=== PATIENT | male | born 1955 | race African-American/Black ===

== ENCOUNTER 2017-12-26 10:29 | Observation (INO) | payer OTHER ==
[~2017-12-26] VITALS: Ht 162.6 cm; Wt 89.0 kg
[~2017-12-26 10:29] MED LIST: ASPI325T PO; BACLPOW30 PO; FURO20TA PO; HYDR-3535 PO; KLOR20TA6 PO; NEUR600T PO; STOO100C PO; roho cushion
[2017-12-26 10:46] VITALS: BP 180/81; PULSE 85; RESP 18; TEMP 98.1; O2SAT 96
[2017-12-26] MEDS ORDERED: HYDR-3583 PO (11:02)
[2017-12-26] MEDS ORDERED: POTA20TA5 PO (11:02)
[2017-12-26] MEDS ORDERED: GABA800T PO (11:02)
[2017-12-26] MEDS ORDERED: COLA100C5 PO (11:02)
[2017-12-26] MEDS ORDERED: BACL10TA PO (11:02)
[2017-12-26] MEDS ORDERED: ASPI-183 PO (11:02)
[2017-12-26] MEDS ORDERED: FURO1TAB62 PO (11:02)
[2017-12-26] MEDS ORDERED: AMIO0.1T PO (11:02)
[2017-12-26] MEDS ORDERED: AMLO2.5T PO (11:02)
--- NOTE | 2017-12-26 11:11 | PD ---
HPI Chief Complaint: Abdominal Pain Time Seen by Provider: 11:05 Travel History International Travel<30 days: No Contact w/Intl Traveler<30days: No Traveled to known affect area: No History of Present Illness HPI 62-year-old male with history of quadriplegia since 2008, colostomy placement, hypertension, asthma, presents to emergency department for evaluation of acute hematuria 2 days. Patient states he has had some lower abdominal pain and cramping. No change in stool output in his colostomy bag. Subjective fever at home. Patient has been followed by wound care for a pressure ulcer on his buttock. Patient states he has not been taking his medication for the last 2-3 days because he is moving and it is locked up. Denies any nausea or vomiting. He does void with a condom catheter. He denies any chest pain or tightness. Patient also has noted increasing edema in his bilateral lower extremities over the last week. He has no other symptoms to report. PFSH Past Medical History Arthritis: No Asthma: Yes Blood Disorders: No Depression: Yes Heart Rhythm Problems: No Cardiovascular Problems: No High Cholesterol: No Chest Pain: No Congestive Heart Failure: No COPD: No Cerebrovascular Accident: No Diminished Hearing: No Endocrine: No Gastrointestinal Disorders: Yes GERD: No Glaucoma: Yes Genitourinary: Yes Hepatitis: Yes (PT REPORT HE DOES NOT HAVE HEPATITIS) Hiatal Hernia: No Hypertension: Yes Immune Disorder: No Implanted Vascular Access Dvce: No Kidney Stones: No Musculoskeletal: Yes Neurologic: Yes (QUADRIPLEGIC) Psychiatric: Yes Reproductive: No Respiratory: Yes (SOB) Integumentary: Yes (CELLULITIS TO RLE; COCCYX PRESSURE ULCER) Migraines: No Renal Failure: No Seizures: No Sleep Apnea: No Ulcer: No Past Surgical History Abdominal Surgery: Yes (COLOSTOMY) Cardiac Surgery: No Ear Surgery: No Endocrine Surgery: No Eye Surgery: No Genitourinary Surgery: No Gynecologic Surgery: No Neurologic Surgery: Yes (FX NECK /ASSAULT 2YEARS AGO? 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, MRSA, ESBL positive Reported Meds & Prescriptions Reported Meds & Active Scripts Active Reported Amlodipine (Amlodipine Besylate) 2.5 Mg Tab 2.5 Mg PO BID Amiodarone (Amiodarone HCl) 100 Mg Tab 100 Mg PO BID Hydrocodone-Acetaminophen 10-325 mg Tab 1 Tab PO Q6H PRN Potassium Chloride Microencaps 20 Meq Tab 20 Meq PO DAILY Gabapentin 800 Mg Tab 800 Mg PO TID Lasix (Furosemide) 20 Mg Tab 20 Mg PO BID Colace (Docusate Sodium) 100 Mg Capsule 100 Mg PO BID Baclofen 10 Mg Tab 10 Mg PO TID Aspirin 325 Mg Tab 325 Mg PO DAILY Review of Systems Except as stated in HPI: all other systems reviewed are Neg Physical Exam Narrative GENERAL: Well-nourished male patient, lying in bed in no acute distress. Appears nontoxic SKIN: Focused skin assessment warm/dry. Slightly flushed. 2 cm x 1 cm healing wound on the left buttock. HEAD: Atraumatic. Normocephalic. EYES: Pupils equal and round. No scleral icterus. No injection or drainage. ENT: No nasal bleeding or discharge. Mucous membranes pink and moist. NECK: Trachea midline. No JVD. CARDIOVASCULAR: Regular rate and rhythm. RESPIRATORY: No accessory muscle use. Diminished to auscultation. Breath sounds equal bilaterally. GASTROINTESTINAL: Abdomen soft, nondistended. Hepatic and splenic margins not palpable. Suprapubic tenderness to palpation. Left lower quadrant colostomy in place. MUSCULOSKELETAL: No obvious deformities. No clubbing. No cyanosis. 2+ bilateral lower extremity edema. Distal pulses are palpable. NEUROLOGICAL: Awake and alert. No obvious cranial nerve deficits. Contractures of the bilateral upper extremities. Lower extremity surface last visit. Normal speech. PSYCHIATRIC: Appropriate mood and affect; insight and judgment normal. Data Data Last Documented VS Vital Signs Date Time Temp Pulse Resp B/P (MAP) Pulse Ox O2 Delivery O2 Flow Rate FiO2 12/26/17 11:33 96 Room Air 12/26/17 10:46 98.1 85 18 180/81 (114) Orders Orders Sepsis Workup Initiated (12/26/17 ) Electrocardiogram (12/26/17 11:09) Complete Blood Count With Diff (12/26/17 11:09) Comprehensive Metabolic Panel (12/26/17 11:09) Prothrombin Time / Inr (Pt) (12/26/17 11:09) Act Partial Throm Time (Ptt) (12/26/17 11:09) Lactic Acid Sepsis Protocol (12/26/17 11:09) Urinalysis - C+S If Indicated (12/26/17 11:09) Influenzae A/B Antigen (12/26/17 11:09) Blood Culture (12/26/17 11:09) Chest, Single Ap (12/26/17 11:09) Blood Glucose (12/26/17 11:09) Ecg Monitoring (12/26/17 11:09) Iv Access Insert/Monitor (12/26/17 11:09) Oximetry (12/26/17 11:09) Oxygen Administration (12/26/17 11:09) B-Type Natriuretic Peptide (12/26/17 11:09) Us Leg Venous Doppler Bilat (12/26/17 ) Ct Abd/Pel W Iv Contrast(Rout) (12/26/17 ) Ketorolac Inj (Toradol Inj) (12/26/17 12:00) Iohexol 350 Inj (Omnipaque 350 Inj) (12/26/17 13:00) Morphine Inj (Morphine Inj) (12/26/17 13:00) Labs Laboratory Tests Test 12/26/17 11:05 12/26/17 11:20 White Blood Count 11.0 TH/MM3 Red Blood Count 6.06 MIL/MM3 Hemoglobin 17.6 GM/DL Hematocrit 52.2 % Mean Corpuscular Volume 86.1 FL Mean Corpuscular Hemoglobin 29.1 PG Mean Corpuscular Hemoglobin Concent 33.8 % Red Cell Distribution Width 14.5 % Platelet Count 269 TH/MM3 Mean Platelet Volume 8.9 FL Neutrophils (%) (Auto) 77.2 % Lymphocytes (%) (Auto) 12.7 % Monocytes (%) (Auto) 8.1 % Eosinophils (%) (Auto) 1.3 % Basophils (%) (Auto) 0.7 % Neutrophils # (Auto) 8.5 TH/MM3 Lymphocytes # (Auto) 1.4 TH/MM3 Monocytes # (Auto) 0.9 TH/MM3 Eosinophils # (Auto) 0.1 TH/MM3 Basophils # (Auto) 0.1 TH/MM3 CBC Comment DIFF FINAL Differential Comment Prothrombin Time 11.3 SEC Prothromb Time International Ratio 1.1 RATIO Activated Partial Thromboplast Time 26.4 SEC Blood Urea Nitrogen 7 MG/DL Creatinine 1.14 MG/DL Random Glucose 89 MG/DL Total Protein 8.9 GM/DL Albumin 3.5 GM/DL Calcium Level 8.8 MG/DL Alkaline Phosphatase 83 U/L Aspartate Amino Transf (AST/SGOT) 33 U/L Alanine Aminotransferase (ALT/SGPT) 30 U/L Total Bilirubin 0.6 MG/DL Sodium Level 137 MEQ/L Potassium Level 3.5 MEQ/L Chloride Level 99 MEQ/L Carbon Dioxide Level 33.3 MEQ/L Anion Gap 5 MEQ/L Estimat Glomerular Filtration Rate 79 ML/MIN Lactic Acid Level 1.1 mmol/L B-Type Natriuretic Peptide 10 PG/ML Urine Color YELLOW Urine Turbidity CLEAR Urine pH 6.0 Urine Specific [place] 1.010 Urine Protein NEG mg/dL Urine Glucose (UA) NEG mg/dL Urine Ketones 10 mg/dL Urine Occult Blood MOD Urine Nitrite NEG Urine Bilirubin NEG Urine Urobilinogen 2.0 MG/DL Urine Leukocyte Esterase NEG Urine RBC 4 /hpf Urine WBC 1 /hpf Urine Squamous Epithelial Cells <1 /hpf Urine Mucus FEW /lpf Microscopic Urinalysis Comment CATH-CULT NOT IND MDM Medical Decision Making Medical Screen Exam Complete: Yes Emergency Medical Condition: Yes Medical Record Reviewed: Yes Differential Diagnosis UTI versus hemorrhagic cystitis versus urethral trauma versus sepsis versus obstruction versus renal calculi Narrative Course 62-year-old male presents to emergency department for evaluation. Patient appears without distress. His vital signs are stable. Patient is quadriplegic and with bilateral upper extremities contractures in lower extremity flaccidity. There is edema of the bilateral lower extremity the patient states this is new for him. He appears nontoxic. He is treated for pain. Laboratory Tests Test 12/26/17 11:05 12/26/17 11:20 White Blood Count 11.0 TH/MM3 Red Blood Count 6.06 MIL/MM3 Hemoglobin 17.6 GM/DL Hematocrit 52.2 % Mean Corpuscular Volume 86.1 FL Mean Corpuscular Hemoglobin 29.1 PG Mean Corpuscular Hemoglobin Concent 33.8 % Red Cell Distribution Width 14.5 % Platelet Count 269 TH/MM3 Mean Platelet Volume 8.9 FL Neutrophils (%) (Auto) 77.2 % Lymphocytes (%) (Auto) 12.7 % Monocytes (%) (Auto) 8.1 % Eosinophils (%) (Auto) 1.3 % Basophils (%) (Auto) 0.7 % Neutrophils # (Auto) 8.5 TH/MM3 Lymphocytes # (Auto) 1.4 TH/MM3 Monocytes # (Auto) 0.9 TH/MM3 Eosinophils # (Auto) 0.1 TH/MM3 Basophils # (Auto) 0.1 TH/MM3 CBC Comment DIFF FINAL Differential Comment Prothrombin Time 11.3 SEC Prothromb Time International Ratio 1.1 RATIO Activated Partial Thromboplast Time 26.4 SEC Blood Urea Nitrogen 7 MG/DL Creatinine 1.14 MG/DL Random Glucose 89 MG/DL Total Protein 8.9 GM/DL Albumin 3.5 GM/DL Calcium Level 8.8 MG/DL Alkaline Phosphatase 83 U/L Aspartate Amino Transf (AST/SGOT) 33 U/L Alanine Aminotransferase (ALT/SGPT) 30 U/L Total Bilirubin 0.6 MG/DL Sodium Level 137 MEQ/L Potassium Level 3.5 MEQ/L Chloride Level 99 MEQ/L Carbon Dioxide Level 33.3 MEQ/L Anion Gap 5 MEQ/L Estimat Glomerular Filtration Rate 79 ML/MIN Lactic Acid Level 1.1 mmol/L B-Type Natriuretic Peptide 10 PG/ML Urine Color YELLOW Urine Turbidity CLEAR Urine pH 6.0 Urine Specific [place] 1.010 Urine Protein NEG mg/dL Urine Glucose (UA) NEG mg/dL Urine Ketones 10 mg/dL Urine Occult Blood MOD Urine Nitrite NEG Urine Bilirubin NEG Urine Urobilinogen 2.0 MG/DL Urine Leukocyte Esterase NEG Urine RBC 4 /hpf Urine WBC 1 /hpf Urine Squamous Epithelial Cells <1 /hpf Urine Mucus FEW /lpf Microscopic Urinalysis Comment CATH-CULT NOT IND Chest x-rays without acute critical may disease. CT Abdomen and pelvis CONCLUSION: 1. Stable CT scan of the abdomen and pelvis compared to 2012. 2. Mild symmetric thickening of urinary bladder wall. This is not significantly changed compared to the prior exam. 3. Stable left lower quadrant ileostomy 4. Stable position of the IVC filter Bilateral lower extremity ultrasound is negative for DVT. I discussed the patient my attending physician who is also assess the patient. Patient is given additional dose of pain control. He'll be discharged home to follow-up with urology and his primary care provider. He is encouraged to take his medication as prescribed. He agrees to return immediately with any acute worsening symptoms. Diagnosis Primary Impression: Hematuria Qualified Codes: R31.9 - Hematuria, unspecified Additional Impression: Lower abdominal pain Referrals: Primary Care Physician Urologist Patient Instructions: General Instructions, Hematuria (ED) Additional Instructions: Maintain adequate oral hydration Continue your medication as already prescribed Follow-up with a urologist Follow-up with a primary care provider Return immediately with any acute worsening of symptoms Med/Other Pt SpecificInfo: No Change to Meds Disposition: 01 DISCHARGE HOME Condition: Stable Thuy Luque Dec 26, 2017 11:11
[2017-12-26 11:33] VITALS: O2SAT 96
[2017-12-26 11:48] LABS: AUTOMATED NEUTROPHIL # 8.5 TH/MM3 (1.8-7.7); BASOPHIL # 0.1 TH/MM3 (0-0.2); BASOPHIL % 0.7 % (0.0-2.0); EOSINOPHIL # 0.1 TH/MM3 (0-0.4); EOSINOPHIL % 1.3 % (0.0-4.0); HEMATOCRIT 52.2 % (39.0-51.0); HEMOGLOBIN 17.6 GM/DL (13.0-17.0); LYMPH % 12.7 % (9.0-44.0); LYMPHOCYTE # 1.4 TH/MM3 (1.0-4.8); MEAN CELL VOLUME 86.1 FL (80.0-100.0); MEAN CORPUSCULAR HEMOGLOBIN 29.1 PG (27.0-34.0); MEAN CORPUSCULAR HGB CONC 33.8 % (32.0-36.0); MEAN PLATELET VOLUME 8.9 FL (7.0-11.0); MONO % 8.1 % (0.0-8.0); MONOCYTE # 0.9 TH/MM3 (0-0.9); NEUT % 77.2 % (16.0-70.0); PLATELET COUNT 269 TH/MM3 (150-450); RED BLOOD COUNT 6.06 MIL/MM3 (4.50-5.90); RED CELL DISTRIBUTION WIDTH 14.5 % (11.6-17.2)
[2017-12-26 11:59] LABS: INTERNATIONAL NORMALIZED RATIO 1.1 RATIO; PROTHROMBIN TIME - PATIENT 11.3 SEC (9.8-11.6)
[2017-12-26] MEDS ORDERED: KETOROLAC TROMETHAMINE 30 MG/ML (IVP) VIAL IV PUSH ONE (12:00)
--- NOTE | 2017-12-26 12:02 | RADRPT ---
EXAM DATE/TIME: 12/26/2017 11:22 [facility] COMPARISON: US LEG BILATERAL VENOUS DOPPLER, March 27, 2012, 10:05. INDICATIONS : Bilateral leg swelling. MEDICAL HISTORY : Hypertension. Glaucoma. Quadriplegic. Asthma. Depression. Substance use. Blood transfusion. MDRO. SURGICAL HISTORY : Colostomy. Neck fracture repair. ENCOUNTER: Subsequent ACUITY: 1 day PAIN SCORE: 0/10 LOCATION: Bilateral legs. TECHNIQUE: Venous ultrasound of the left and right leg was performed from the inguinal ligament to the proximal calf. Real-time, color Doppler and spectral tracing, compression and augmentation techniques were us ed. FINDINGS: RIGHT LEG: There is normal compressibility of the deep venous system from the inguinal region to the proximal ca lf. No echogenic clot is seen in the lumen of the common femoral, femoral, popliteal, and posterior tibial veins. There is a normal response of the venous system to proximal and distal augmentation an d respiration. Inguinal lymph nodes are seen. LEFT LEG: There is normal compressibility of the deep venous system from the inguinal region to the proximal ca lf. No echogenic clot is seen in the lumen of the common femoral, femoral, popliteal, and posterior tibial veins. There is a normal response of the venous system to proximal and distal augmentation an d respiration. Inguinal lymph nodes are seen. CONCLUSION: No DVT. Scott Obregon MD on December 26, 2017 at 12:00 Board Certified Radiologist. This report was verified electronically.
[2017-12-26 12:10] LABS: ALKALINE PHOSPHATASE 83 U/L (45-117); TOTAL BILIRUBIN ADULT 0.6 MG/DL (0.2-1.0); TOTAL PROTEIN 8.9 GM/DL (6.4-8.2)
[2017-12-26 12:11] LABS: ALBUMIN 3.5 GM/DL (3.4-5.0); ALT (GPT) 30 U/L (12-78); AST (GOT) 33 U/L (15-37); BICARBONATE 33.3 MEQ/L (21.0-32.0); BLOOD UREA NITROGEN 7 MG/DL (7-18); CALCIUM 8.8 MG/DL (8.5-10.1); CHLORIDE 99 MEQ/L (98-107); CREATININE 1.14 MG/DL (0.60-1.30); GLOMERULAR FILTRATION RATE 79 ML/MIN (>89); GLUCOSE,RANDOM 89 MG/DL (74-106); SODIUM (NA) 137 MEQ/L (136-145)
--- NOTE | 2017-12-26 12:41 | RADRPT ---
EXAM DATE/TIME: 12/26/2017 12:03 [facility] COMPARISON: No previous studies available for comparison. INDICATIONS : Chest and abdominal pain, shortness of breath. MEDICAL HISTORY : Hypertension. Asthma. SURGICAL HISTORY : None. ENCOUNTER: Initial ACUITY: 1 day PAIN SCORE: 8/10 LOCATION: Bilateral chest FINDINGS: A single view of the chest demonstrates the lungs to be symmetrically aerated without evidence of mas s, infiltrate or effusion. The cardiomediastinal contours are unremarkable. Osseous structures are intact. CONCLUSION: No acute disease. Darius Grimes MD on December 26, 2017 at 12:39 Board Certified Radiologist. This report was verified electronically.
[2017-12-26 12:44] LABS: BILIRUBIN, URINE NEG (NEG); BLOOD, URINE MOD (NEG); GLUCOSE,URINE NEG (NEG); KETONE, URINE 10 mg/dL (NEG); MUCUS URINE FEW /lpf (OCC); NITRITE,URINE NEG (NEG); SQUAMOUS EPITHELIAL CELL URINE <1 /hpf (0-5); URINE COLOR YELLOW (YELLW/STRAW); URINE LEUKOCYTE ESTERASE NEG (NEG)
[2017-12-26] MEDS ORDERED: MORPHINE SULFATE 2 MG/ML INJ IV PUSH ONE (13:00)
[2017-12-26] MEDS ORDERED: IOHEXOL 350 MG/ML 10 ML VIAL (for RAD DIAG) IVCONTRAST ONE (13:00)
--- NOTE | 2017-12-26 13:05 | PD ---
Physical Exam Narrative I, Dr. Venegas, have reviewed the advance practice practitioner's documentation and am in agreement, met with the patient face to face, made the diagnosis, and the medical decision making was done by me. *My assessment and Findings: Colitis vs. UTI vs. nephrolithiasis 62yo M who is a quadriplegic here with lower abdominal pain and hematuria for 2 days. Denies any vomiting. Said he had fever at home but afebrile here. Labs reviewed, no leukocytosis. H/H elevated, likely secondary to dehydration. Lactic acid normal. BNP 10. CMP unremarkable. UA showed moderate 10. WBC 1. CXR negative. US bilateral lower ext showed no DVT. CT a/p showed stable CT of abdomen and pelvis. Mild symmetric thickening of urinary bladder wall. Not significantly changed. Pt's pain improved after medication. He is well appearing. Tolerating PO. Return precautions given. Data Data Last Documented VS Vital Signs Date Time Temp Pulse Resp B/P (MAP) Pulse Ox O2 Delivery O2 Flow Rate FiO2 12/26/17 11:33 96 Room Air 12/26/17 10:46 98.1 85 18 180/81 (114) Orders Orders Sepsis Workup Initiated (12/26/17 ) Electrocardiogram (12/26/17 11:09) Complete Blood Count With Diff (12/26/17 11:09) Comprehensive Metabolic Panel (12/26/17 11:09) Prothrombin Time / Inr (Pt) (12/26/17 11:09) Act Partial Throm Time (Ptt) (12/26/17 11:09) Lactic Acid Sepsis Protocol (12/26/17 11:09) Urinalysis - C+S If Indicated (12/26/17 11:09) Influenzae A/B Antigen (12/26/17 11:09) Blood Culture (12/26/17 11:09) Chest, Single Ap (12/26/17 11:09) Blood Glucose (12/26/17 11:09) Ecg Monitoring (12/26/17 11:09) Iv Access Insert/Monitor (12/26/17 11:09) Oximetry (12/26/17 11:09) Oxygen Administration (12/26/17 11:09) B-Type Natriuretic Peptide (12/26/17 11:09) Us Leg Venous Doppler Bilat (12/26/17 ) Ct Abd/Pel W Iv Contrast(Rout) (12/26/17 ) Ketorolac Inj (Toradol Inj) (12/26/17 12:00) Iohexol 350 Inj (Omnipaque 350 Inj) (12/26/17 13:00) Morphine Inj (Morphine Inj) (12/26/17 13:00) Ed Discharge Order (12/26/17 13:28) Labs Laboratory Tests Test 12/26/17 11:05 12/26/17 11:20 White Blood Count 11.0 TH/MM3 Red Blood Count 6.06 MIL/MM3 Hemoglobin 17.6 GM/DL Hematocrit 52.2 % Mean Corpuscular Volume 86.1 FL Mean Corpuscular Hemoglobin 29.1 PG Mean Corpuscular Hemoglobin Concent 33.8 % Red Cell Distribution Width 14.5 % Platelet Count 269 TH/MM3 Mean Platelet Volume 8.9 FL Neutrophils (%) (Auto) 77.2 % Lymphocytes (%) (Auto) 12.7 % Monocytes (%) (Auto) 8.1 % Eosinophils (%) (Auto) 1.3 % Basophils (%) (Auto) 0.7 % Neutrophils # (Auto) 8.5 TH/MM3 Lymphocytes # (Auto) 1.4 TH/MM3 Monocytes # (Auto) 0.9 TH/MM3 Eosinophils # (Auto) 0.1 TH/MM3 Basophils # (Auto) 0.1 TH/MM3 CBC Comment DIFF FINAL Differential Comment Prothrombin Time 11.3 SEC Prothromb Time International Ratio 1.1 RATIO Activated Partial Thromboplast Time 26.4 SEC Blood Urea Nitrogen 7 MG/DL Creatinine 1.14 MG/DL Random Glucose 89 MG/DL Total Protein 8.9 GM/DL Albumin 3.5 GM/DL Calcium Level 8.8 MG/DL Alkaline Phosphatase 83 U/L Aspartate Amino Transf (AST/SGOT) 33 U/L Alanine Aminotransferase (ALT/SGPT) 30 U/L Total Bilirubin 0.6 MG/DL Sodium Level 137 MEQ/L Potassium Level 3.5 MEQ/L Chloride Level 99 MEQ/L Carbon Dioxide Level 33.3 MEQ/L Anion Gap 5 MEQ/L Estimat Glomerular Filtration Rate 79 ML/MIN Lactic Acid Level 1.1 mmol/L B-Type Natriuretic Peptide 10 PG/ML Urine Color YELLOW Urine Turbidity CLEAR Urine pH 6.0 Urine Specific [place] 1.010 Urine Protein NEG mg/dL Urine Glucose (UA) NEG mg/dL Urine Ketones 10 mg/dL Urine Occult Blood MOD Urine Nitrite NEG Urine Bilirubin NEG Urine Urobilinogen 2.0 MG/DL Urine Leukocyte Esterase NEG Urine RBC 4 /hpf Urine WBC 1 /hpf Urine Squamous Epithelial Cells <1 /hpf Urine Mucus FEW /lpf Microscopic Urinalysis Comment CATH-CULT NOT IND MDM Supervised Visit with BEBE: Yes Interpretation(s) EKG: NSR 72bpm. RBBB. TWI V3, III Diagnosis Primary Impression: Lower abdominal pain [place] Venegas DO Dec 26, 2017 13:05
--- NOTE | 2017-12-26 13:06 | RADRPT ---
EXAM DATE/TIME: 12/26/2017 12:42 [facility] COMPARISON: CT ABDOMEN & PELVIS W CONTRAST, January 20, 2012, 10:47. INDICATIONS : Urine is red, abdominal pain, colostomy. IV CONTRAST: 85 cc Omnipaque 350 (iohexol) IV ORAL CONTRAST: No oral contrast ingested. RADIATION DOSE: 9.68 CTDIvol (mGy) MEDICAL HISTORY : Hypertension. Hepatitis. Parapalegic SURGICAL HISTORY : Colostomy. ostomy, urine catheter, ENCOUNTER: Initial ACUITY: 1 day PAIN SCALE: 6/10 LOCATION: diffuse abdomen TECHNIQUE: Volumetric scanning of the abdomen and pelvis was performed. Using automated exposure control and ad justment of the mA and/or kV according to patient size, radiation dose was kept as low as reasonably achievable to obtain optimal diagnostic quality images. DICOM format image data is available electro nically for review and comparison. FINDINGS: LOWER LUNGS: The visualized lower lungs are clear. LIVER: Homogeneous density without lesion. There is no dilation of the biliary tree. No calcified gallston es. SPLEEN: Normal size without lesion. PANCREAS: Within normal limits. KIDNEYS: Normal in size and shape. There is no mass, stone or hydronephrosis. ADRENAL GLANDS: Within normal limits. VASCULAR: There is no aortic aneurysm. Stable IVC filter in place. BOWEL/MESENTERY: The stomach, small bowel, and colon demonstrate no acute abnormality. There is a stable ileostomy burt ng the left lower quadrant. There is stool throughout the colon. No evidence of obstruction. No infla mmatory changes. No significant change compared to the prior exam. The appendix is unremarkable. The re is no free intraperitoneal air or fluid. ABDOMINAL WALL: Within normal limits. RETROPERITONEUM: There is no lymphadenopathy. BLADDER: Mild symmetric thickening of urinary bladder wall. This is stable compared to the prior exam. No blad zachary stones. REPRODUCTIVE: Within normal limits. INGUINAL: There is no lymphadenopathy or hernia. MUSCULOSKELETAL: Within normal limits for patient age. Stable primary degenerative changes. No new or significant changes compared to 2011 CONCLUSION: 1. Stable CT scan of the abdomen and pelvis compared to 2011. 2. Mild symmetric thickening of urinary bladder wall. This is not significantly changed compared to t he prior exam. 3. Stable left lower quadrant ileostomy 4. Stable position of the IVC filter Darius Grimes MD on December 26, 2017 at 13:01 Board Certified Radiologist. This report was verified electronically.
[2017-12-26 18:00] VITALS: BP 177/91; PULSE 70; RESP 21; O2SAT 96
[2017-12-27] MEDS ORDERED: ACETAMINOPHEN/HYDROcodone 325 MG/5 MG TAB PO ONE (03:30)
[2017-12-27] MEDS ORDERED: BACLOFEN 10 MG TAB PO ONE (03:30)
[2017-12-27 04:32] VITALS: BP 130/78; PULSE 69; RESP 16; O2SAT 98
[2017-12-27 09:51] VITALS: BP 168/96; PULSE 73; RESP 16; O2SAT 98
[2017-12-27] MEDS ORDERED: GABAPENTIN 100 MG CAP PO ONE (10:00)
--- NOTE | 2017-12-27 12:10 | PD ---
Physical Exam Date Seen by Provider: Dec 27, 2017 Time Seen by Provider: 12:08 Narrative Patient was seen by the previous ER physician and discharged a while ago. However the discharge was getting withheld due to the fact that patient's motorized wheelchair is at a repair shop. Patient cannot ambulate without the wheelchair since he's paraplegic. He has no means of help. ED case management was working on this issue finally let us know that the wheelchair would be ready by tomorrow in which case patient needs to be admitted if there is no other way of getting him home or help. I discussed the case with the residents who have accepted the patient. Patient will be admitted for 24 hours. Data Data Last Documented VS Vital Signs Date Time Temp Pulse Resp B/P (MAP) Pulse Ox O2 Delivery O2 Flow Rate FiO2 12/27/17 09:51 73 16 168/96 (120) 98 Room Air 12/26/17 10:46 98.1 Orders Orders Sepsis Workup Initiated (12/26/17 ) Electrocardiogram (12/26/17 11:09) Complete Blood Count With Diff (12/26/17 11:09) Comprehensive Metabolic Panel (12/26/17 11:09) Prothrombin Time / Inr (Pt) (12/26/17 11:09) Act Partial Throm Time (Ptt) (12/26/17 11:09) Lactic Acid Sepsis Protocol (12/26/17 11:09) Urinalysis - C+S If Indicated (12/26/17 11:09) Influenzae A/B Antigen (12/26/17 11:09) Blood Culture (12/26/17 11:09) Chest, Single Ap (12/26/17 11:09) Blood Glucose (12/26/17 11:09) Ecg Monitoring (12/26/17 11:09) Iv Access Insert/Monitor (12/26/17 11:09) Oximetry (12/26/17 11:09) Oxygen Administration (12/26/17 11:09) B-Type Natriuretic Peptide (12/26/17 11:09) Us Leg Venous Doppler Bilat (12/26/17 ) Ct Abd/Pel W Iv Contrast(Rout) (12/26/17 ) Ketorolac Inj (Toradol Inj) (12/26/17 12:00) Iohexol 350 Inj (Omnipaque 350 Inj) (12/26/17 13:00) Morphine Inj (Morphine Inj) (12/26/17 13:00) Ed Discharge Order (12/26/17 13:28) Diet Heart Healthy (12/26/17 Dinner) Baclofen (Lioresal) (12/27/17 03:30) Acetamin-Hydrocod 325-5 Mg ([place] 5-325 (12/27/17 03:30) Gabapentin (Neurontin) (12/27/17 10:00) Admit Order (Ed Use Only) (12/27/17 12:08) Labs Laboratory Tests Test 12/26/17 11:05 12/26/17 11:20 White Blood Count 11.0 TH/MM3 Red Blood Count 6.06 MIL/MM3 Hemoglobin 17.6 GM/DL Hematocrit 52.2 % Mean Corpuscular Volume 86.1 FL Mean Corpuscular Hemoglobin 29.1 PG Mean Corpuscular Hemoglobin Concent 33.8 % Red Cell Distribution Width 14.5 % Platelet Count 269 TH/MM3 Mean Platelet Volume 8.9 FL Neutrophils (%) (Auto) 77.2 % Lymphocytes (%) (Auto) 12.7 % Monocytes (%) (Auto) 8.1 % Eosinophils (%) (Auto) 1.3 % Basophils (%) (Auto) 0.7 % Neutrophils # (Auto) 8.5 TH/MM3 Lymphocytes # (Auto) 1.4 TH/MM3 Monocytes # (Auto) 0.9 TH/MM3 Eosinophils # (Auto) 0.1 TH/MM3 Basophils # (Auto) 0.1 TH/MM3 CBC Comment DIFF FINAL Differential Comment Prothrombin Time 11.3 SEC Prothromb Time International Ratio 1.1 RATIO Activated Partial Thromboplast Time 26.4 SEC Blood Urea Nitrogen 7 MG/DL Creatinine 1.14 MG/DL Random Glucose 89 MG/DL Total Protein 8.9 GM/DL Albumin 3.5 GM/DL Calcium Level 8.8 MG/DL Alkaline Phosphatase 83 U/L Aspartate Amino Transf (AST/SGOT) 33 U/L Alanine Aminotransferase (ALT/SGPT) 30 U/L Total Bilirubin 0.6 MG/DL Sodium Level 137 MEQ/L Potassium Level 3.5 MEQ/L Chloride Level 99 MEQ/L Carbon Dioxide Level 33.3 MEQ/L Anion Gap 5 MEQ/L Estimat Glomerular Filtration Rate 79 ML/MIN Lactic Acid Level 1.1 mmol/L B-Type Natriuretic Peptide 10 PG/ML Urine Color YELLOW Urine Turbidity CLEAR Urine pH 6.0 Urine Specific [employer] 1.010 Urine Protein NEG mg/dL Urine Glucose (UA) NEG mg/dL Urine Ketones 10 mg/dL Urine Occult Blood MOD Urine Nitrite NEG Urine Bilirubin NEG Urine Urobilinogen 2.0 MG/DL Urine Leukocyte Esterase NEG Urine RBC 4 /hpf Urine WBC 1 /hpf Urine Squamous Epithelial Cells <1 /hpf Urine Mucus FEW /lpf Microscopic Urinalysis Comment CATH-CULT NOT IND MDM Supervised Visit with BEBE: No Diagnosis Primary Impression: Lower abdominal pain Additional Impressions: Hematuria Qualified Codes: R31.9 - Hematuria, unspecified Paraplegia Wheelchair bound Admitting Information Admitting Physician Requests: Observation Referrals: Primary Care Physician Urologist Patient Instructions: General Instructions, Hematuria (ED) Additional Instruction: Maintain adequate oral hydration Continue your medication as already prescribed Follow-up with a urologist Follow-up with a primary care provider Return immediately with any acute worsening of symptoms Scripts Amlodipine (Amlodipine) 2.5 Mg Tab 2.5 MG PO BID for Blood Pressure Management, #30 TAB 0 Refills Prov: Nakul Collins MD, R3 12/29/17 Docusate Sodium (Colace) 100 Mg Capsule 100 MG PO BID for Prevent Constipation, #60 CAP 0 Refills Prov: Nakul Collins MD, R3 12/29/17 Baclofen (Baclofen) 10 Mg Tab 10 MG PO TID for Muscle Spasm, #30 TAB 0 Refills Prov: Nakul Collins MD, R3 12/29/17 Aspirin (Aspirin) 325 Mg Tab 325 MG PO DAILY, #30 TAB 0 Refills Prov: Nakul Collins MD, R3 12/29/17 Hydrocodone-Acetaminophen (Hydrocodone-Acetaminophen) 10-325 mg Tab 1 TAB PO Q6H Y for PAIN, #30 TAB 0 Refills Prov: Nakul Collins MD, R3 12/28/17 Disposition: 01 DISCHARGE HOME Condition: Stable Jada Nash MD Dec 27, 2017 12:10
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
--- NOTE | 2017-12-27 12:19 | EKG ---
Date Performed: 12/26/2017 Time Performed: 11:44:17 PTAGE: 62 years EKG: Sinus rhythm POSSIBLE LEFT ATRIAL ENLARGEMENT INDETERMINATE AXIS RIGHT BUNDLE BRANCH BLOCK ABNORMAL ECG PREVIOUS TRACING : 06/20/2013 11.04 Since the prior tracing, there has been no significant machuca DOCTOR: Pierre Armstrong Interpretating Date/Time 12/27/2017 12:18:15
[2017-12-27] MEDS ORDERED: BISACODYL 10 MG SUPP RECTAL PRN (12:45)
[2017-12-27] MEDS ORDERED: ONDANSETRON HCL 4 MG/2 ML VIAL IVP PRN (12:45)
[2017-12-27] MEDS ORDERED: SODIUM CHLORIDE 0.9% FLUSH 10 ML FLUSH IV FLUSH PRN (12:45)
[2017-12-27] MEDS ORDERED: LACTULOSE SYRUP 20 GM/30 ML CUP PO PRN (12:45)
[2017-12-27] MEDS ORDERED: NALOXONE HCL 0.4 MG/ML AMP IV PUSH PRN (12:45)
[2017-12-27] MEDS ORDERED: SENNOSIDES 8.6 MG TAB PO PRN (12:45)
[2017-12-27] MEDS ORDERED: ACETAMINOPHEN 325 MG TAB PO PRN (12:45)
[2017-12-27] MEDS ORDERED: MAGNESIUM HYDROXIDE SUSP 30 ML CUP PO PRN (12:45)
[2017-12-27] MEDS ORDERED: PILL SPLITTER OTHER PRN (13:15)
[2017-12-27] MEDS: ACETAMINOPHEN/HYDROcodone 325 MG/10 MG TAB PO PRN ×2 (14:08→18:42)
[2017-12-27 14:09] VITALS: BP 172/98; PULSE 70; RESP 16; TEMP 98.3; O2SAT 96
[2017-12-27] MEDS: HEPARIN SODIUM - SQ 10,000 UNITS/ML VIAL SQ SCH (14:09)
[2017-12-27] MEDS: GABAPENTIN 400 MG CAP PO SCH ×2 (14:09→18:41)
--- NOTE | 2017-12-27 14:34 | RADRPT ---
EXAM DATE/TIME: 12/27/2017 13:44 [place] COMPARISON: No previous studies available for comparison. INDICATIONS : Sacral pain. No recent injury known. MEDICAL HISTORY : None. SURGICAL HISTORY : None. ENCOUNTER: Initial ACUITY: 4 - 6 days PAIN SCORE: 9/10 LOCATION: Bilateral sacrum FINDINGS: Frontal and lateral views of the sacrum demonstrate no fracture. Sacral arches appear intact. Sacroil iac joints demonstrate no abnormality. Visualized pelvic bones demonstrate no acute finding. There is osteoarthritis at the hip joints bilaterally. No coccyx is visualized. CONCLUSION: 1. No acute sacral abnormality is identified. 2. Nonvisualization of the coccyx. The coccyx was also not visualized on the recent CT scan.. There i s a sacral decubitus wound on the prior imaging studies with possible changes to the posterior sacrum which could indicate osteomyelitis (acute versus chronic). 3. Bilateral hip joint osteoarthritis. Scott Alexis MD on December 27, 2017 at 14:30 Board Certified Radiologist. This report was verified electronically.
[2017-12-27] MEDS: BACLOFEN 10 MG TAB PO SCH ×2 (15:09→18:41)
[2017-12-27 15:58] VITALS: BP 131/65; PULSE 85; RESP 21; TEMP 98; O2SAT 92
--- NOTE | 2017-12-27 17:30 | PD.WCN.NOT ---
Wound Consult Description: Received consult from Doctor Nakul Collins MD R3 for sacral pressure injury Communicated with: MIKE Rudolph CDU H pod and Doctor Nakul Collins Recommendation: 1.Please cleanse improving stage 4 pressure injury to sacral area and stage 3 pressure injury to R ischial area with normal saline and pat dry 2. Apply Maxorb II (calcium alginate) loosely packed in to wound bed of sacral wound cover with bordered gauze. Change dressing every other day PRN if saturated or dislodged. 3. please apply oil emulsion gauze over in a single layer just over open wounds and cover with bordered gauze. Change dressing every other day or PRN if saturated or dislodged. 4. Please turn patient every 2 hours and PRN for comfort and offloading or pressure from kei prominences. Additional Information: Patient seen on H pod CDU for evaluation of sacral pressure ulcer around 1630. Patient was seen with Miri NICHOLS, , and Klaudia CDU H pod. Patient was turned with assistance of advertising writer, Miri NICHOLS, and Klaudia to R side to reveal improving stage 4 pressure injury to sacral area that measures 1cm x 1.4cm 1.1cm. Undermining noted between 12 and 8 o'clock deepest at 12 o'clock measuring 1.2cm. Wound bed presents with ~80% red non granulation tissue and ~20 % newly epithelialized tissue. Wound margins are noted with epibole that is circumferential and macerated between 5 and 8 o'clock. Periwound presents with scar tissue and denuded peeling skin. Skin prep was applied to periwound before packing wound loosely with Maxorb II (calcium alginate) dressing and covering with bordered gauze. Stage 3 pressure injury is also noted to R ischial area. Wound measures 5cm x 2cm x 0.2cm. Wound bed presents with 100% red non granulation tissue. Wound margins are uneven, but well defined. Cleansed wound with normal saline and patted dry. Applied oil emulsion gauze just over open wound and covered with bordered gauze. Patient educated on the importance of repositioning in bed every 2 hours and following up with outpatient wound care. Ramila Rogers [facility] Dec 27, 2017 17:29
[2017-12-27 20:41] VITALS: BP 123/68; PULSE 87; RESP 20; TEMP 98.6; O2SAT 93
[2017-12-27] MEDS ORDERED: ZOLPIDEM TARTRATE 5 MG TAB PO PRN (21:00)
[2017-12-27] MEDS: amLODIPine BESYLATE 5 MG TAB PO SCH (22:15)
[2017-12-27] MEDS: DOCUSATE SODIUM 50 MG/SENNA 8.6 MG TAB PO SCH (22:15)
[2017-12-27] MEDS: SODIUM CHLORIDE 0.9% FLUSH 10 ML FLUSH IV FLUSH SCH (22:16)
[2017-12-28] VITALS (7 sets, daily range): BP systolic 124–174; BP diastolic 68–94; PULSE 75–93; RESP 16–20; TEMP 98.1–99.4; O2SAT 94–100
[2017-12-28] MEDS: ACETAMINOPHEN/HYDROcodone 325 MG/10 MG TAB PO PRN ×3 (02:24→17:40)
[2017-12-28] MEDS: HEPARIN SODIUM - SQ 10,000 UNITS/ML VIAL SQ SCH ×2 (02:24→12:47)
[2017-12-28 06:59] LABS: AUTOMATED NEUTROPHIL # 6.5 TH/MM3 (1.8-7.7); BASOPHIL % 0.3 % (0.0-2.0); EOSINOPHIL # 0.3 TH/MM3 (0-0.4); EOSINOPHIL % 2.4 % (0.0-4.0); HEMATOCRIT 46.9 % (39.0-51.0); HEMOGLOBIN 15.5 GM/DL (13.0-17.0); LYMPH % 28.4 % (9.0-44.0); LYMPHOCYTE # 3.1 TH/MM3 (1.0-4.8); MEAN CELL VOLUME 86.6 FL (80.0-100.0); MEAN CORPUSCULAR HEMOGLOBIN 28.7 PG (27.0-34.0); MEAN CORPUSCULAR HGB CONC 33.1 % (32.0-36.0); MEAN PLATELET VOLUME 8.7 FL (7.0-11.0); MONO % 8.8 % (0.0-8.0); NEUT % 60.1 % (16.0-70.0); PLATELET COUNT 241 TH/MM3 (150-450); RED BLOOD COUNT 5.42 MIL/MM3 (4.50-5.90); RED CELL DISTRIBUTION WIDTH 14.4 % (11.6-17.2); WHITE BLOOD COUNT 10.9 TH/MM3 (4.0-11.0)
[2017-12-28 07:24] LABS: BICARBONATE 32.2 MEQ/L (21.0-32.0); CALCIUM 8.7 MG/DL (8.5-10.1); CREATININE 1.01 MG/DL (0.60-1.30)
[2017-12-28] MEDS ORDERED: POTASSIUM CHLORIDE 10 MEQ CONTROLLED RELEASE TAB PO ONE (08:45)
[2017-12-28] MEDS: SODIUM CHLORIDE 0.9% FLUSH 10 ML FLUSH IV FLUSH SCH ×2 (09:00→20:38)
[2017-12-28] MEDS ORDERED: HYDR-3583 PO (09:11)
[2017-12-28] MEDS: GABAPENTIN 400 MG CAP PO SCH ×3 (09:20→17:37)
[2017-12-28] MEDS: DOCUSATE SODIUM 50 MG/SENNA 8.6 MG TAB PO SCH ×2 (09:21→20:38)
[2017-12-28] MEDS: amLODIPine BESYLATE 5 MG TAB PO SCH ×2 (09:21→20:38)
[2017-12-28] MEDS: BACLOFEN 10 MG TAB PO SCH ×3 (09:21→17:37)
[2017-12-28] MEDS: ASPIRIN 325 MG TAB PO SCH (09:21)
[2017-12-28] MEDS ORDERED: INFLUENZA VIRUS VACCINE (QUADRIVALENT) 0.5 ML SYR IM ONE (10:00)
[2017-12-28] MEDS ORDERED: PNEUMOCOCCAL POLYVALENT INJ 25 MCG/0.5 ML SYR IM ONE (10:00)
--- NOTE | 2017-12-28 12:52 | HHI.DCPOC ---
Discharge Care Plan Diagnosis: (1) Sacral decubitus ulcer, stage IV (2) Hematuria (3) Wheelchair bound Goals to Promote Your Health * To prevent worsening of your condition and complications * To maintain your health at the optimal level Directions to Meet Your Goals Take your medications as prescribed Follow your dietary instruction Follow activity as directed Keep your appointments as scheduled Take your immunizations and boosters as scheduled If your symptoms worsen call your PCP, if no PCP go to Urgent Care Center or Emergency Room Smoking is Dangerous to Your Health. Avoid second hand smoke Call the 24-hour hour crisis hotline for domestic abuse at Nakul Collins MD, R3 Dec 28, 2017 12:52
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
[2017-12-29 00:08] VITALS: BP 131/72; PULSE 73; RESP 16; TEMP 98; O2SAT 96
[2017-12-29] MEDS: ACETAMINOPHEN/HYDROcodone 325 MG/10 MG TAB PO PRN ×2 (00:50→07:10)
[2017-12-29] MEDS: MORPHINE SULFATE 2 MG/ML INJ IV PUSH PRN ×2 (01:58→11:03)
[2017-12-29] MEDS: HEPARIN SODIUM - SQ 10,000 UNITS/ML VIAL SQ SCH (01:58)
[2017-12-29 04:53] VITALS: BP 125/71; PULSE 71; RESP 16; TEMP 98.5; O2SAT 92
[2017-12-29 07:25] VITALS: BP 163/84; PULSE 72; RESP 18; TEMP 98.1; O2SAT 98
[2017-12-29] MEDS ORDERED: COLA100C5 PO (08:24)
[2017-12-29] MEDS ORDERED: BACL10TA PO (08:24)
[2017-12-29] MEDS ORDERED: ASPI-183 PO (08:24)
[2017-12-29] MEDS ORDERED: AMLO2.5T PO (08:24)
[2017-12-29] MEDS: SODIUM CHLORIDE 0.9% FLUSH 10 ML FLUSH IV FLUSH SCH (08:54)
[2017-12-29] MEDS: GABAPENTIN 400 MG CAP PO SCH (08:55)
[2017-12-29] MEDS: BACLOFEN 10 MG TAB PO SCH (08:55)
[2017-12-29] MEDS: ASPIRIN 325 MG TAB PO SCH (08:55)
[2017-12-29] MEDS: DOCUSATE SODIUM 50 MG/SENNA 8.6 MG TAB PO SCH (08:55)
[2017-12-29] MEDS: amLODIPine BESYLATE 5 MG TAB PO SCH (08:55)
--- NOTE | 2017-12-29 09:19 | HHI.FPPN ---
Subjective Remarks Mr. Parrish reported that his pain was better last night and controlled with medications. He did require Morphine for breakthrough pain. His nurses are helping him to change positions every 4 hours to reduce pressure on his sacrum. The med admin visited him yesterday and he states that he is feeling better regarding his father's . Patient's motorized wheel chair was brought to the hospital yesterday but the person was told that the patient was no longer here. His wheel chair should be delivered today. He spoke to social work and hopes to receive a stipend for temporary housing at a motel until he is able to find a new home. Patient again advised to follow up with PCP, urology and wound clinic which he agreed to do. Patient states he is out of his home medications and needs refills on all of them except for gabapentin. (Nakul Collins MD, R3) Objective Vitals Vital Signs Date Time Temp Pulse Resp B/P (MAP) Pulse Ox O2 Delivery O2 Flow Rate FiO2 12/29/17 07:25 98.1 72 18 163/84 (110) 98 12/29/17 04:53 98.5 71 16 125/71 (89) 92 12/29/17 02:03 16 12/29/17 01:50 18 12/29/17 00:08 98.0 73 16 131/72 (91) 96 12/28/17 19:39 98.7 75 16 142/72 (95) 95 12/28/17 15:13 98.7 88 18 126/68 (87) 100 12/28/17 13:01 98.3 81 18 124/71 (88) 96 I/O 12/28/17 12/28/17 12/28/17 12/29/17 12/29/17 12/29/17 06:59 14:59 22:59 06:59 14:59 22:59 Intake Total 360 ml 320 ml Output Total 1350 ml 565 ml Balance -990 ml -245 ml Intake Oral 360 ml 320 ml Output Urine Total 1350 ml 565 ml (Nakul Collins MD, R3) Result Diagram: 12/28/17 0600 12/28/17 0600 Objective Remarks GENERAL: This is a well-nourished, well-developed patient, in no apparent distress. Lying in bed SKIN: No rashes or ecchymoses. HEAD: Atraumatic. Normocephalic. No temporal or scalp tenderness. EYES: Pupils equal round and reactive. Extraocular motions intact. No scleral icterus. No injection or drainage. ENT: Nose without bleeding, purulent drainage or septal hematoma. Throat without erythema, tonsillar hypertrophy or exudate. Uvula midline. Airway patent. NECK: Trachea midline. No JVD or lymphadenopathy. Supple, nontender, no meningeal signs. CARDIOVASCULAR: Regular rate and rhythm without murmurs, gallops, or rubs. RESPIRATORY: Clear to auscultation. Breath sounds equal bilaterally. No wheezes , rales, or rhonchi. GASTROINTESTINAL: Abdomen soft, non-tender, nondistended. No hepato-splenomegaly , or palpable masses. No guarding. Colostomy present in left lower quadrant MUSCULOSKELETAL: Extremities without clubbing, cyanosis; slight bilateral edema in feet. Also with dry skin bilaterally to ankle. No joint tenderness, effusion , or edema noted. No calf tenderness. Negative Homans sign bilaterally. NEUROLOGICAL: Awake and alert. Cranial nerves II through XII intact. Able to feel and move legs bilaterally. Hands constantly flexed into fist. Normal speech. (Nakul Collins MD, R3) A/P Assessment and Plan 62-year-old hemiplegic male with known sacral ulcer presents of hematuria and worsening back pain. Improving stage IV decubitus ulcer. Discharge Planning discharge is in will provide home medication until follow up with PCP. (Nakul Collins MD, R3) Attending Attestation Patient seen and examined. Case reviewed and discussed with the resident team. Agree with plan of care as discussed with me and documented in the resident note. Mr Parrish is improved overall and wants to go to a hotel where he has been staying the [facility] (Rox Foley MD) Problem List: (1) Sacral decubitus ulcer, stage IV ICD Codes: L89.154 - Pressure ulcer of sacral region, stage 4 Status: Chronic Plan: Was seen by wound care nurse, per wound care his ulcers are stable. ESR is normal His wounds are deep and he has little or no fat as a cushion so he is a risk for osteo if he does not work at continuing to heal and explained that to him Patient to continue repositioning in bed Follow up with outpatient wound care. (Known to Dr. Panchal) (2) Wheelchair bound ICD Codes: Z99.3 - Dependence on wheelchair Status: Chronic Plan: Wheelchair has been repaired, to be delivered to hospital today (3) Hypertension ICD Codes: I10 - Essential (primary) hypertension Status: Chronic Plan: Controlled, continue home medications Monitor BP (4) Muscle spasm ICD Codes: M62.838 - Other muscle spasm Status: Chronic Plan: Continue home medications (5) Chronic pain due to injury ICD Codes: G89.21 - Chronic pain due to trauma Plan: Continue home medications. Acetaminophen and Morphine PRN for pain (6) Hematuria ICD Codes: R31.9 - Hematuria, unspecified Status: Acute Plan: Continue to monitor for hematuria but fortunately no gross blood at this time Follow up with urology outpatient and will be able to get his urine assessed to see if he needs workup there. Unsure if he will follow up as he has not been great about his wound care appointments (7) Colostomy care ICD Codes: Z43.3 - Encounter for attention to colostomy Status: Acute Plan: Ostomy nurse to assist with management. (8) FEN/PPX Status: Acute Plan: Fluids: tolerating PO Electrolytes: monitor and replace prn Nutrition: regular diet PPX: heparin and SCDs. (Nakul Collins MD, R3) Problem Qualifiers (1) Hypertension: Qualified Codes: I10 - Essential (primary) hypertension (2) Hematuria: Qualified Codes: R31.9 - Hematuria, unspecified Nakul Collins MD, R3 Dec 29, 2017 09:19 Rox Foley MD Jan 01, 2018 13:21
[2017-12-29 12:00] VITALS: BP 141/73; PULSE 76; RESP 18; TEMP 98.2; O2SAT 96
--- NOTE | 2017-12-30 08:55 | HHI.DS ---
Discharge Summary Admission Date Dec 27, 2017 at 12:09 Discharge Date: Dec 29, 2017 Admitting Diagnosis inability to ambulate, hematuria (1) Sacral decubitus ulcer, stage IV Diagnosis: Principal Plan: Was seen by wound care nurse, per wound care his ulcers are stable. ESR is normal His wounds are deep and he has little or no fat as a cushion so he is a risk for osteo if he does not work at continuing to heal and explained that to him Patient to continue repositioning in bed Follow up with outpatient wound care. (Known to Dr. Panchal) ICD Codes: L89.154 - Pressure ulcer of sacral region, stage 4 Status: Chronic (2) Wheelchair bound Diagnosis: Principal Plan: Wheelchair has been repaired, to be delivered to hospital today ICD Codes: Z99.3 - Dependence on wheelchair Status: Chronic (3) Hypertension Diagnosis: Secondary Plan: Controlled, continue home medications Monitor BP ICD Codes: I10 - Essential (primary) hypertension Status: Chronic (4) Muscle spasm Diagnosis: Secondary Plan: Continue home medications ICD Codes: M62.838 - Other muscle spasm Status: Chronic (5) Chronic pain due to injury Diagnosis: Secondary Plan: Continue home medications. Acetaminophen and Morphine PRN for pain ICD Codes: G89.21 - Chronic pain due to trauma (6) Hematuria Diagnosis: Secondary Plan: Continue to monitor for hematuria but fortunately no gross blood at this time Follow up with urology outpatient and will be able to get his urine assessed to see if he needs workup there. Unsure if he will follow up as he has not been great about his wound care appointments ICD Codes: R31.9 - Hematuria, unspecified Status: Acute (7) Colostomy care Diagnosis: Secondary Plan: Ostomy nurse to assist with management. ICD Codes: Z43.3 - Encounter for attention to colostomy Status: Acute (8) FEN/PPX Diagnosis: Secondary Plan: Fluids: tolerating PO Electrolytes: monitor and replace prn Nutrition: regular diet PPX: heparin and SCDs. Status: Acute Consultants Wound care Brief History Mr Parrish is a 62-year old male with a history of hemiplegia, colostomy, and hypertension who presented to the ED because he thought he was urinating blood. He believed he saw red urine in his condom catheter. Patient states that he also had abdominal pain every 3-4 minutes that started the day before admission. Pain was dull, worse sitting up and better when laying down. Pain has since resolved. There has been no recurrence of hematuria. He had subjective fever yesterday of 99.0 and bilateral edema. He has a history of back pain for which he takes Lortab, however this appears to be increasing recently. He has a known decubitis ulcer which he sees Dr. Panchal for; most recently she saw him on 09/28/2017 for stage 3 decubitis which was debrided and cleaned at that time. He does not rotate frequently and usually requires assistance with this. His PCP is Dr. Wilcox, who he sees once every 6-7 months when he has concerns. He does not have a urologist. Patient uses a motorized wheelchair for mobility and typically does not ambulate without it. His wheelchair is currently in the repair shop. Patient denies nausea, vomiting, changes in output in colostomy bag. He reported today that his pain was very bad last night. Evidently he was debrided and his wound was very tender. He also has just suffered the of his father and buried him last Wednesday. Fortunately, blood was not seen currently in his urine. We discussed that it is important to move frequently so he is not putting any pressure on his sacrum and to keep up with his follow ups at the wound clinic which he agrees to do. CBC/BMP: 12/28/17 0600 12/28/17 0600 Significant Findings Laboratory Tests Test 12/27/17 15:38 12/28/17 06:00 Monocytes (%) (Auto) 8.8 % (0.0-8.0) Monocytes # (Auto) 1.0 TH/MM3 (0-0.9) Potassium Level 3.2 MEQ/L (3.5-5.1) Carbon Dioxide Level 32.2 MEQ/L (21.0-32.0) Imaging Last Impressions Sacrum X-Ray 12/27/17 0000 Signed Impressions: Service Date/Time: Wednesday, December 27, 2017 13:44 - CONCLUSION: 1. No acute sacral abnormality is identified. 2. Nonvisualization of the coccyx. The coccyx was also not visualized on the recent CT scan.. There is a sacral decubitus wound on the prior imaging studies with possible changes to the posterior sacrum which could indicate osteomyelitis (acute versus chronic). 3. Bilateral hip joint osteoarthritis. Scott Alexis MD Chest X-Ray 12/26/17 1109 Signed Impressions: Service Date/Time: Tuesday, December 26, 2017 12:03 - CONCLUSION: No acute disease. Darius Grimes MD Lower Extremity Ultrasound 12/26/17 0000 Signed Impressions: Service Date/Time: Tuesday, December 26, 2017 11:22 - CONCLUSION: No DVT. Scott Obregon MD Abdomen/Pelvis CT 12/26/17 0000 Signed Impressions: Service Date/Time: Tuesday, December 26, 2017 12:42 - CONCLUSION: 1. Stable CT scan of the abdomen and pelvis compared to 2012. 2. Mild symmetric thickening of urinary bladder wall. This is not significantly changed compared to the prior exam. 3. Stable left lower quadrant ileostomy 4. Stable position of the IVC filter Darius Grimes MD PE at Discharge GENERAL: This is a well-nourished, well-developed patient, in no apparent distress. Lying in bed SKIN: No rashes or ecchymoses. HEAD: Atraumatic. Normocephalic. No temporal or scalp tenderness. EYES: Pupils equal round and reactive. Extraocular motions intact. No scleral icterus. No injection or drainage. ENT: Nose without bleeding, purulent drainage or septal hematoma. Throat without erythema, tonsillar hypertrophy or exudate. Uvula midline. Airway patent. NECK: Trachea midline. No JVD or lymphadenopathy. Supple, nontender, no meningeal signs. CARDIOVASCULAR: Regular rate and rhythm without murmurs, gallops, or rubs. RESPIRATORY: Clear to auscultation. Breath sounds equal bilaterally. No wheezes , rales, or rhonchi. GASTROINTESTINAL: Abdomen soft, non-tender, nondistended. No hepato-splenomegaly , or palpable masses. No guarding. Colostomy present in left lower quadrant MUSCULOSKELETAL: Extremities without clubbing, cyanosis; slight bilateral edema in feet. Also with dry skin bilaterally to ankle. No joint tenderness, effusion , or edema noted. No calf tenderness. Negative Homans sign bilaterally. NEUROLOGICAL: Awake and alert. Cranial nerves II through XII intact. Able to feel and move legs bilaterally. Hands constantly flexed into fist. Normal speech. Hospital Course This is a hemiplegic male with a known stage 3/4 decubitus ulcer which is being managed by his wound care physician, Dr. Panchal. He presented to the ED because of hematuria, and it was recommended he follow-up with a urologist as an outpatient. However, the patient had to remain in the hospital because he did not have his mobile wheelchair. On physical exam initially, we were concerned with his sacral ulcer. Imaging and sedimentation rate reviewed as not revealing osteomyelitis. The patient was ready for discharge the next day after admission, however his wheelchair was not yet ready. He remained in the hospital for 1 more day because of this. The next day, he was ready for discharge with his wheelchair. He did request refills on all of his home medications except gabapentin. These were filled for him. It was recommended he follow closely with his wound care physician per previous instruction. PT rec 's outpatient PT; this order was placed. Pt Condition on Discharge: Stable Discharge Disposition: Discharge Home Discharge Instructions DIET: Follow Instructions for: As Tolerated, No Restrictions Activities you can perform: See Additionl Instruction Other Activity Instructions: Per PT. PT ordered at discharge Follow up Referrals: PCP Follow-up - 1 Week Urology - 1 Week Wound Care Clinic - 1 Week with Sandra Panchal MD New Orders: Physical Therapy - 2-3 Days Continued Medications: Amlodipine (Amlodipine) 2.5 Mg Tab 2.5 MG PO BID for Blood Pressure Management, #30 TAB 0 Refills (This prescription has been renewed) Aspirin (Aspirin) 325 Mg Tab 325 MG PO DAILY, #30 TAB 0 Refills (This prescription has been renewed) Baclofen (Baclofen) 10 Mg Tab 10 MG PO TID for Muscle Spasm, #30 TAB 0 Refills (This prescription has been renewed) Docusate Sodium (Colace) 100 Mg Capsule 100 MG PO BID for Prevent Constipation, #60 CAP 0 Refills (This prescription has been renewed) Gabapentin (Gabapentin) 800 Mg Tab 800 MG PO TID, #90 TAB 0 Refills Hydrocodone-Acetaminophen (Hydrocodone-Acetaminophen) 10-325 mg Tab 1 TAB PO Q6H PRN for PAIN, #30 TAB 0 Refills (This prescription has been renewed ) Nakul Collins MD, R3 Dec 30, 2017 08:55
== END 2017-12-29 14:42 | disposition home or self-care (01) ==
LOC: NEPE 10:29 → NEDA 12-27 12:09 → NEPHCDU 12-27 14:31
PROVIDERS: ADMIT Family Medicine; ATTEND Family Medicine
DX: L89.154 Pressure ulcer of sacral region, stage 4 (principal); E86.0 Dehydration; I45.10 Unspecified right bundle-branch block; R94.31 Abnormal electrocardiogram [ECG] [EKG]; R10.30 Lower abdominal pain, unspecified; M62.422 Contracture of muscle, left upper arm; M62.421 Contracture of muscle, right upper arm; R31.9 Hematuria, unspecified; R06.02 Shortness of breath; R50.9 Fever, unspecified; R60.0 Localized edema; I10 Essential (primary) hypertension; M62.838 Other muscle spasm; B19.20 Unspecified viral hepatitis C without hepatic coma; J45.909 Unspecified asthma, uncomplicated; M54.9 Dorsalgia, unspecified; H40.9 Unspecified glaucoma; G82.50 Quadriplegia, unspecified; F32.9 Major depressive disorder, single episode, unspecified; M16.0 Bilateral primary osteoarthritis of hip; Z93.3 Colostomy status; Z43.3 Encounter for attention to colostomy; Z79.899 Other long term (current) drug therapy; Z99.3 Dependence on wheelchair; Z79.82 Long term (current) use of aspirin; Z86.11 Personal history of tuberculosis; Z59.0 Homelessness; Z93.2 Ileostomy status
CPT/HCPCS: 71045; 72220; 74177; 80048; 80053; 81001; 83605; 83880; 85025; 85610; 85652; 85730; 87040; 87804; 93005; 93970; 96374; 97163; 99285; G0378; G8987; G8988; J1644; J1885; J2270; Q9967

== ENCOUNTER 2018-03-23 09:56 | Emergency (ER) | payer OTHER ==
[~2018-03-23 09:56] MED LIST changes: +AMLO2.5T PO; +ASPI-183 PO; -ASPI325T PO; +BACL10TA PO; -BACLPOW30 PO; +COLA100C5 PO; -FURO20TA PO; +GABA800T PO; -HYDR-3535 PO; +HYDR-3583 PO; -KLOR20TA6 PO; -NEUR600T PO; -STOO100C PO; -roho cushion
[2018-03-23 09:59] VITALS: BP 166/77; PULSE 53; RESP 16; TEMP 98.7; O2SAT 99
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
== END 2018-03-23 11:01 | disposition home or self-care (01) ==
LOC: NEPD 09:56
DX: T83.9XXA Unspecified complication of genitourinary prosthetic device, implant and graft, initial encounter (principal); F17.200 Nicotine dependence, unspecified, uncomplicated; G82.50 Quadriplegia, unspecified
CPT/HCPCS: 99283